=== PATIENT | male | born 1980 | race African-American/Black ===

== ENCOUNTER 2017-01-16 08:08 | Emergency (ER) | payer MEDICAID ==
[~2017-01-16] VITALS: Ht 175.3 cm; Wt 82.0 kg
[2017-01-16] MEDS ORDERED: KETOROLAC 60MG/2ML VIAL IM ONE (10:00)
[2017-01-16 11:16] VITALS: BP 119/71
== END 2017-01-16 11:20 | disposition home or self-care (01) ==
LOC: ER 08:50
DX: S20.219A Contusion of unspecified front wall of thorax, initial encounter (principal); R51 Headache; H93.12 Tinnitus, left ear; F17.200 Nicotine dependence, unspecified, uncomplicated; V49.69XA Unspecified car occupant injured in collision with other motor vehicles in traffic accident, initial encounter; Y93.89 Activity, other specified; Y92.89 Other specified places as the place of occurrence of the external cause; Y99.8 Other external cause status
CPT/HCPCS: 71010; 96372; 99283; J1885